=== PATIENT | male | born 1980 | race Two or more races ===

== ENCOUNTER 2017-02-09 01:20 | Emergency (ER) | payer SELFPAY ==
[~2017-02-09] VITALS: Ht 170.2 cm; Wt 84.0 kg
[2017-02-09 01:24] VITALS: BP 144/86; PULSE 92; RESP 14; TEMP 97.9; O2SAT 97
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
[2017-02-09] MEDS ORDERED: TETANUS/DIPHTHERIA TOXOID ADULT 0.5 ML VIAL IM ONE (01:30)
[2017-02-09] MEDS ORDERED: CEPHALEXIN MONOHYDRATE 500 MG CAP PO ONE (01:30)
--- NOTE | 2017-02-09 02:02 | RADRPT ---
EXAM DATE/TIME: 02/09/2017 01:43 [facility] COMPARISON: No previous studies available for comparison. INDICATIONS : Left wrist laceration and possible foreign body. Punched glass window tonight. MEDICAL HISTORY : None. SURGICAL HISTORY : None. ENCOUNTER: Initial ACUITY: 1 day PAIN SCORE: 7/10 LOCATION: Left wrist FINDINGS: There is no evidence of acute fracture. Bony mineralization is normal. There is an area of increased density adjacent to the ulnar styloid measuring 2-3 mm which may reflect a foreign body though the co ntour and smooth nature of this would be atypical for a glass fragment. This may reflect an area of b enign calcification CONCLUSION: 1. Possible foreign body as above. Kwasi Samson MD on February 09, 2017 at 1:57 Board Certified Radiologist. This report was verified electronically.
== END 2017-02-09 02:59 ==
LOC: NEPK 01:20
DX: S61.512A Laceration without foreign body of left wrist, initial encounter (principal); Z23 Encounter for immunization; Z72.0 Tobacco use; W25.XXXA Contact with sharp glass, initial encounter; Y93.89 Activity, other specified; Y92.9 Unspecified place or not applicable; Y99.8 Other external cause status
CPT/HCPCS: 12002; 73100; 90471; 90714